=== PATIENT | female | born 1965 | race Caucasian/White ===

== ENCOUNTER 2023-12-27 16:46 | Emergency (ER) | payer MEDICAID, SELFPAY ==
[2023-12-27] VITALS (22 sets, daily range): BP systolic 182–233; BP diastolic 81–119; PULSE 84–115; RESP 17–18; TEMP 36.4; O2SAT 92–96; BMI 28.1
--- NOTE | 2023-12-27 17:09 | DI.CT.S_ITS ---
PROCEDURE: CT HEAD/BRAIN WO CON INDICATIONS: fall on saturday. severe headache. vomitting. TECHNIQUE: Noncontrast 4.5 mm thick angled axial sections acquired from the foramen magnum to the vertex, with coronal and sagittal reformats. For radiation dose reduction, the following was used: automated exposure control, adjustment of mA and/or kV according to patient size. COMPARISON: None. FINDINGS: Image quality: Diagnostic. CSF spaces: Basal cisterns are patent. No extra-axial fluid collections. Ventricles are normal in size and shape. Brain: No midline shift. No intracranial masses or hemorrhage. Yi-white matter interface is within normal limits. Skull and face: Calvarium and visualized facial bones are intact, without suspicious lesions. Sinuses: Visualized sinuses and mastoids are clear. IMPRESSION: No acute intracranial pathology. Dictated by: Magdy Julien M.D. on 12/27/2023 at 18:10 Approved by: Magdy Julien M.D. on 12/27/2023 at 18:14
--- NOTE | 2023-12-27 17:16 | DI.CT.S_ITS ---
PROCEDURE: CT FACIAL BONES WO CON INDICATIONS: head injury TECHNIQUE: Noncontrast 2.5 mm thick axial images acquired from the mandible through the frontal sinuses, with coronal and sagittal reformatting. For radiation dose reduction, the following was used: automated exposure control, adjustment of mA and/or kV according to patient size. COMPARISON: [facility], CT, CT CERVICAL SPINE WO CON, 12/27/2023, 17:27. [facility], CT, CT HEAD/BRAIN WO CON, 12/27/2023, 17:27. FINDINGS: Image quality: This examination is limited by involuntary motion artifact. Bones and teeth: Comminuted, mildly displaced nasal bone fractures can be seen. The nasal septum appears intact, without fracture. Orbital rico are intact. Sinus rico show no fracture or deformity. Visualized portions of the mandible demonstrate no fractures or subluxation. Zygomatic arches are intact. Pterygoid plates are intact. Visualized portions of the skull base and auditory canals are intact. Sinuses: Paranasal sinuses are aerated, without fluid levels, mucosal thickening, or mucoceles. Mastoid air cells are aerated. The ostiomeatal complexes are patent, yet they are constitutionally narrowed, with bilateral Malissa cells. Soft tissues: No edema, masses, or fluid collections. No enlarged lymph nodes. No soft tissue lacerations or debris. Vascular: Visualized vascular structures appear normal in the absence of contrast. Bony vascular foramina and canals are intact. Atherosclerotic calcification is noted. IMPRESSION: Comminuted, mildly displaced nasal bone fracture seen on both sides. These are felt most likely to be acute. However, please correlate with patient history and with focal tenderness to determine the chronicity of these fractures. Dictated by: Gautam Herrera M.D. on 12/27/2023 at 17:17 Approved by: Gautam Herrera M.D. on 12/27/2023 at 17:19
--- NOTE | 2023-12-27 17:17 | DI.CT.S_ITS ---
PROCEDURE: CT CERVICAL SPINE WO CON INDICATIONS: head injury TECHNIQUE: Noncontrast 3 mm thick sections acquired from the skull base to the T4 level. Sagittal and coronal reformats were then constructed. For radiation dose reduction, the following was used: automated exposure control, adjustment of mA and/or kV according to patient size. COMPARISON: None. FINDINGS: Image quality: Excellent. Bones: No fractures or dislocations. Visualized superior ribs are intact. Soft tissues: Prevertebral soft tissues are normal in thickness. No paravertebral hematomas. No apical pneumothoraces. Bilateral carotid bulb atherosclerotic calcifications. IMPRESSION: No displaced fracture or traumatic subluxation. Dictated by: Magdy Julien M.D. on 12/27/2023 at 18:29 Approved by: Magdy Julien M.D. on 12/27/2023 at 18:31
[2023-12-27] MEDS: ONDANSETRON 4 MG/2 ML INJ IV (17:36)
[2023-12-27 17:42] LABS: Add Manual Diff / Slide Review NO; Basophils Absolute Auto 100 /uL (0-100); Eosinophils Absolute Auto 0 /uL (0-450); Eosinophils Percent Auto 0.2 % (2-4); Hematocrit 45.5 % (36-46); Hemoglobin 15.4 g/dL (12.0-16.0); Lymphocytes Absolute Auto 1200 /uL (1100-4500); Lymphocytes Percent Auto 9.4 % (25-40); Mean Corpuscular HGB Conc 33.8 % (30-36); Mean Corpuscular Hemoglobin 30.1 PG (26-34); Monocytes Absolute Auto 500 /uL (0-900); Monocytes Percent Auto 3.9 % (3-14); Neutrophils Absolute Auto 10700 /uL (1500-7000); Neutrophils Percent Auto 85.5 % (50-75); Platelet Count 245 X10^3/uL (150-400); Red Blood Cell Count 5.11 X10^6/uL (4.0-5.2); Red Cell Distribution Width 13.4 % (11.6-14.8); White Blood Cell Count 12.6 X10^3/uL (4.5-11.0)
[2023-12-27 17:54] LABS: Alanine Aminotransferase 22 IU/L (<35); Albumin 5.1 g/dL (3.5-5.0); Albumin Globulin Ratio 1.5 (1.0-2.8); Alkaline Phosphatase 115 U/L (38-126); Aspartate Aminotransferase 29 IU/L (14-36); BUN Creatinine Ratio 12.9 (6-22); Bilirubin Total 0.7 mg/dL (0.2-1.3); Blood Urea Nitrogen 15 mg/dL (7-17); Carbon Dioxide 20 mmol/L (22-32); Chloride 104 mmol/L (98-107); Estimated Glomerular Filt Rate 54 mL/min (>60); Globulin 3.3 g/dL (1.7-4.1); Glucose 143 mg/dL (70-100); HEMOLYSIS 16 (0-50); Potassium 3.9 mmol/L (3.4-5.1); Sodium 136 mmol/L (137-145); Total Protein 8.4 g/dL (6.3-8.2)
[2023-12-27] MEDS: MORPHINE 2 MG/ML INJ IV (17:55)
[2023-12-27 18:18] LABS: Urine Volume 10mL (spun)
[2023-12-27 18:19] LABS: Bacteria Urine Occasional (0-1); Culture Indicated Urine Cult Not Indicated; RBC Urine None Seen (0-5/HPF); Squamous Epithelial Cell Urine 0-1 /HPF (0-5/HPF); WBC Urine 0-1/HPF (0-5/HPF)
--- NOTE | 2023-12-27 19:52 | ED_ITS ---
HPI - Head Injury General Chief complaint: Head Injury Stated complaint: fall Time Seen by Provider: 12/27/23 17:48 Source: patient Mode of arrival: Family Vehicle Limitations: no limitations History of Present Illness HPI Narrative: 58-year-old female with no reported medical issues who states that she developed headache that was gradual onset today increasing lowering worse throughout her whole head. Patient states she had 5 or 6 episodes of vomiting. She states that she has had headaches before she has had migraines before but states this feels different. She did have a fall a week ago, tripped and fell hitting her face and has bruising underneath both eyes. Denies any headaches immediately afterwards denied any neck pain, no chest pain or shortness of breath, she was not having any nausea or vomiting until today. States that her face hurt a little bit but not bad. She denies vision changes. Denies any numbness tingling or weakness or difficulty with ambulation. Patient states she has not had any loss of bowel or bladder control or any other GI or urinary symptoms. She states no prescription medications, denies prior surgeries. No known drug allergies. Former smoker, occasional alcohol, uses marijuana but no other recreational drugs. Patient received Zofran and 2 mg of morphine prior to evaluation. Related Data Allergies Allergy/AdvReac Type Severity Reaction Status Date / Time No Known Drug Allergies Allergy Verified 12/27/23 17:08 Review of Systems Review of Systems ROS Unobtainable: All systems reviewed & are unremarkable except as noted in HPI and below Patient History Social History Smoking Status: Former smoker Smoking Status: Former smoker tobacco type: cigarettes alcohol intake frequency: 0-2 drinks per day Substance Use Type: marijuana Exam Narrative Exam Narrative: GEN: well nourished, well appearing female, alert and oriented x 3, patient appears to be in mild distress. HEENT: Atraumatic, pupils are equal round reactive to light, extraocular movements are intact, nares are clear, TMs are clear with no fluid, there is no conjunctival pallor. Throat is clear without any exudates, erythema, tonsillar enlargement or uvular deviation, patient has bilateral bruising/raccoon sign. No moreno sign. No other traumatic changes. HEART: Regular rate and rhythm without murmur, clicks, rubs. No carotid bruits, pulses are equal in upper and lower extremities LUNGS:Lungs clear to auscultation, no wheezes, rales, crackles, chest moves symmetrically ABD:bowel sounds normal, soft, non-tender, no guarding, rebound, rigidity, no masses noted, no hepatosplenomegaly :No CVA tenderness MSCL: Non-tender, no muscle atrophy, muscles strength 5/5 upper and lower extremities, full range of motion, normal gait NEURO:CN 2-12 intact, sensation normal, finger nose finger test normal, heel monahan test normal, romberg normal Initial Vital Signs Initial Vital Signs: Vital Signs Temperature 97.5 F L 12/27/23 17:02 Pulse Rate 115 H 12/27/23 17:02 Respiratory Rate 17 12/27/23 17:02 Blood Pressure 187/112 H 12/27/23 17:02 Pulse Oximetry 95 12/27/23 17:02 Oxygen Delivery Method Room Air 12/27/23 17:02 Course Orders Ordered: ED Orders 12/27/23 17:09 CT head/brain wo con Stat 12/27/23 17:16 CT facial bones wo con Stat 12/27/23 17:17 CT cervical spine wo con Stat 12/27/23 17:31 CBC Auto Diff [Complete Blood Count AUTO DIFF] Stat Comprehensive Metabolic Panel Stat 12/27/23 17:40 Urine Microscopic Stat Discontinued Medications Hydrocodone Bitart/Acetaminophen (Hydrocodone/Acet 5/325 Tablet) 2 tab PO NOW ONE Stop: 12/27/23 19:53 Last Admin: 12/27/23 19:58 Dose: 2 tab Documented By: SHERRI Hydrocodone Bitart/Acetaminophen (Hydrocodone/Acet 5/325 Prepack) 1 bottle MISC DIRECTED ONE Stop: 12/27/23 21:35 Last Admin: 12/27/23 21:50 Dose: 1 bottle Documented By: SHERRI Sodium Chloride (Normal Saline 0.9%) 1,000 mls @ 1,000 mls/hr IV BOLUS ONE Stop: 12/27/23 21:10 Last Infusion: 12/27/23 21:36 Dose: Infused Documented By: Admin: 12/27/23 20:29 Dose: 1,000 mls/hr Documented By: SHERRI Ketorolac Tromethamine (Ketorolac 30 Mg/Ml Vial) 15 mg IV NOW ONE Stop: 12/27/23 20:12 Last Admin: 12/27/23 20:25 Dose: 15 mg Documented By: SHERRI Metoclopramide HCl (Metoclopramide 10 Mg/2 Ml Inj) 10 mg IV NOW ONE Stop: 12/27/23 20:12 Last Admin: 12/27/23 20:27 Dose: 10 mg Documented By: SHERRI Morphine Sulfate (Morphine 2 Mg/Ml Inj) 2 mg IV NOW ONE Stop: 12/27/23 17:49 Last Admin: 12/27/23 17:55 Dose: 2 mg Documented By: MOJGAN Ondansetron HCl (Ondansetron 4 Mg/2 Ml Inj) 4 mg IV NOW PRN PRN Reason: Nausea And Vomiting Last Admin: 12/27/23 17:36 Dose: 4 mg Documented By: SHERRI Ondansetron HCl (Ondansetron 4 Mg Odt Prepack) 1 bottle MISC DIRECTED ONE Stop: 12/27/23 21:35 Last Admin: 12/27/23 21:50 Dose: 1 bottle Documented By: SHERRI Vital Signs Vital signs: Vital Signs - 8 hr 12/27/23 17:42 12/27/23 17:42 12/27/23 17:43 Pulse Rate 87 93 H Respiratory Rate Blood Pressure 200/88 H Pulse Oximetry 93 94 Oxygen Delivery Method 12/27/23 17:43 12/27/23 17:44 12/27/23 18:00 Pulse Rate 92 H 87 Respiratory Rate 18 Blood Pressure 188/85 H 182/84 H Pulse Oximetry 95 94 Oxygen Delivery Method Room Air 12/27/23 18:00 12/27/23 18:03 12/27/23 18:03 Pulse Rate 87 Respiratory Rate Blood Pressure 195/85 H 184/84 H Pulse Oximetry 94 Oxygen Delivery Method 12/27/23 18:30 12/27/23 18:30 12/27/23 18:43 Pulse Rate 84 84 Respiratory Rate Blood Pressure 192/93 H Pulse Oximetry 94 93 Oxygen Delivery Method 12/27/23 18:43 12/27/23 19:00 12/27/23 19:00 Pulse Rate 84 Respiratory Rate Blood Pressure 188/81 H 196/97 H Pulse Oximetry 93 Oxygen Delivery Method 12/27/23 20:01 12/27/23 20:02 12/27/23 20:03 Pulse Rate 98 H 98 H 98 H Respiratory Rate Blood Pressure Pulse Oximetry 96 92 95 Oxygen Delivery Method 12/27/23 20:03 12/27/23 20:05 12/27/23 20:05 Pulse Rate 101 H Respiratory Rate Blood Pressure 233/112 H 221/119 H Pulse Oximetry 96 Oxygen Delivery Method 12/27/23 20:30 12/27/23 20:48 12/27/23 20:48 Pulse Rate 93 H 92 H Respiratory Rate Blood Pressure 210/89 H Pulse Oximetry 94 95 Oxygen Delivery Method 12/27/23 20:49 12/27/23 20:49 12/27/23 20:50 Pulse Rate 92 H Respiratory Rate Blood Pressure 201/86 H 194/84 H Pulse Oximetry 94 Oxygen Delivery Method 12/27/23 20:50 12/27/23 20:51 12/27/23 20:51 Pulse Rate 92 H 90 Respiratory Rate Blood Pressure 196/85 H Pulse Oximetry 94 95 Oxygen Delivery Method 12/27/23 20:52 12/27/23 20:52 12/27/23 21:00 Pulse Rate 93 H 90 Respiratory Rate Blood Pressure 195/83 H Pulse Oximetry 94 95 Oxygen Delivery Method 12/27/23 21:30 12/27/23 21:32 12/27/23 21:32 Pulse Rate 87 90 Respiratory Rate Blood Pressure 187/89 H Pulse Oximetry 95 95 Oxygen Delivery Method MDM - Head Injury Lab Data 12/27/23 17:31 12/27/23 17:31 Labs: Lab Results 12/27/23 12/27/23 Range/Units 17:31 17:40 WBC 12.6 H (4.5-11.0) X10^3/uL RBC 5.11 (4.0-5.2) X10^6/uL Hgb 15.4 (12.0-16.0) g/dL Hct 45.5 (36-46) % MCV 89.0 (80-100) fL MCH 30.1 (26-34) PG MCHC 33.8 (30-36) % RDW 13.4 (11.6-14.8) % Plt Count 245 (150-400) X10^3/uL Neut % (Auto) 85.5 H (50-75) % Lymph % (Auto) 9.4 L (25-40) % [place] % (Auto) 3.9 (3-14) % Eos % (Auto) 0.2 L (2-4) % Baso % (Auto) 1.0 (0-2) % Neut # (Auto) 83605 H (8868-8857) /uL Lymph # (Auto) 1200 (0740-2728) /uL [place] # (Auto) 500 (0-900) /uL Eos # (Auto) 0 (0-450) /uL Baso # (Auto) 100 (0-100) /uL Sodium 136 L (137-145) mmol/L Potassium 3.9 (3.4-5.1) mmol/L Chloride 104 (98-107) mmol/L Carbon Dioxide 20 L (22-32) mmol/L BUN 15 (7-17) mg/dL Creatinine 1.16 H (0.52-1.04) mg/dL Estimated GFR 54 L (>60) mL/min BUN/Creatinine Ratio 12.9 (6-22) Glucose 143 H (70-100) mg/dL Calcium 10.0 (8.4-10.2) mg/dL Total Bilirubin 0.7 (0.2-1.3) mg/dL AST 29 (14-36) IU/L ALT 22 (<35) IU/L Alkaline Phosphatase 115 (38-126) U/L Total Protein 8.4 H (6.3-8.2) g/dL Albumin 5.1 H (3.5-5.0) g/dL Globulin 3.3 (1.7-4.1) g/dL Albumin/Globulin Ratio 1.5 (1.0-2.8) Urine RBC None seen (0-5/HPF) Urine WBC 0-1/hpf (0-5/HPF) Ur Squamous Epith Cells 0-1 /hpf (0-5/HPF) Urine Bacteria Occasional (0-1) (None) Ur Culture Indicated? Cult not indicated Vol Urine Centrifuged 10ml (spun) Urine Dip Bedside Urine Glucose Negative Bedside Urine Bilirubin - Negative Bedside Urine Ketone ++ 40 Urine Specific [place] 1.020 Bedside Urine Occult Blood +/- Bedside Urine pH 6.5 Bedside Urine Protein ++ 100 Bedside Urine Urobilinogen - Negative Bedside Urine Nitrite - Negative Bedside Urine Leukocytes - Negative Esterase Imaging Data CT scan - head: Radiologist's Impression: [address] [address] [address] Scan Report Signed Patient: Bri Edgar MR#: [id number] : 1965 Acct:[id number] Age/Sex: 58 / F Date of Service: 12/27/23 Loc: ED Accession Number: [id number] Procedure: CT head/brain wo con Ordering Provider: Olamide Walker D.O. PROCEDURE: CT HEAD/BRAIN WO CON INDICATIONS: fall on [place]. severe headache. vomitting. TECHNIQUE: Noncontrast 4.5 mm thick angled axial sections acquired from the foramen magnum to the vertex, with coronal and sagittal reformats. For radiation dose reduction, the following was used: automated exposure control, adjustment of mA and/or kV according to patient size. COMPARISON: None. FINDINGS: Image quality: Diagnostic. CSF spaces: Basal cisterns are patent. No extra-axial fluid collections. Ventricles are normal in size and shape. Brain: No midline shift. No intracranial masses or hemorrhage. Yi-white matter interface is within normal limits. Skull and face: Calvarium and visualized facial bones are intact, without suspicious lesions. Sinuses: Visualized sinuses and mastoids are clear. IMPRESSION: No acute intracranial pathology. Dictated by: Magdy Julien M.D. on 12/27/2023 at 18:10 Approved by: Magdy Julien M.D. on 12/27/2023 at 18:14 CT - cervical spine: Radiologist's Impression: Diagnostics Reports Bri Edgar??58??F??1965 ? Allergy/Adv: No Known Drug Allergies Close Cervical Spine CT (Signed) Call,Magdy - 12/27/[address] (Signed) Gautam Herrera - 12/27/[address] (Signed) Call,Magdy - 12/27/23 Launch?[place] [address] CT Scan Report Signed Patient: Bri Edgar MR#: [id number] : 1965 Acct:[id number] Age/Sex: 58 / F Date of Service: 12/27/23 Loc: ED Accession Number: [id number] Procedure: CT cervical spine wo con Ordering Provider: Olamide Walker D.O. PROCEDURE: CT CERVICAL SPINE WO CON INDICATIONS: head injury TECHNIQUE: Noncontrast 3 mm thick sections acquired from the skull base to the T4 level. Sagittal and coronal reformats were then constructed. For radiation dose reduction, the following was used: automated exposure control, adjustment of mA and/or kV according to patient size. COMPARISON: None. FINDINGS: Image quality: Excellent. Bones: No fractures or dislocations. Visualized superior ribs are intact. Soft tissues: Prevertebral soft tissues are normal in thickness. No paravertebral hematomas. No apical pneumothoraces. Bilateral carotid bulb atherosclerotic calcifications. IMPRESSION: No displaced fracture or traumatic subluxation. Dictated by: Magdy Julien M.D. on 12/27/2023 at 18:29 Approved by: Magdy Julien M.D. on 12/27/2023 at 18:31 CT facial bones: Radiologist's Impression: [place] [address] CT Scan Report Signed Patient: Bri Edgar MR#: [id number] : 1965 Acct:[id number] Age/Sex: 58 / F Date of Service: 12/27/23 Loc: ED Accession Number: [id number] Procedure: CT facial bones wo con Ordering Provider: Olamide Walker D.O. PROCEDURE: CT FACIAL BONES WO CON INDICATIONS: head injury TECHNIQUE: Noncontrast 2.5 mm thick axial images acquired from the mandible through the frontal sinuses, with coronal and sagittal reformatting. For radiation dose reduction, the following was used: automated exposure control, adjustment of mA and/or kV according to patient size. COMPARISON: [facility], CT, CT CERVICAL SPINE WO CON, 12/27/2023, 17:27. [facility], CT, CT HEAD/BRAIN WO CON, 12/27/2023, 17:27. FINDINGS: Image quality: This examination is limited by involuntary motion artifact. Bones and teeth: Comminuted, mildly displaced nasal bone fractures can be seen. The nasal septum appears intact, without fracture. Orbital rico are intact. Sinus rico show no fracture or deformity. Visualized portions of the mandible demonstrate no fractures or subluxation. Zygomatic arches are intact. Pterygoid plates are intact. Visualized portions of the skull base and auditory canals are intact. Sinuses: Paranasal sinuses are aerated, without fluid levels, mucosal thickening, or mucoceles. Mastoid air cells are aerated. The ostiomeatal complexes are patent, yet they are constitutionally narrowed, with bilateral Malissa cells. Soft tissues: No edema, masses, or fluid collections. No enlarged lymph nodes. No soft tissue lacerations or debris. Vascular: Visualized vascular structures appear normal in the absence of contrast. Bony vascular foramina and canals are intact. Atherosclerotic calcification is noted. IMPRESSION: Comminuted, mildly displaced nasal bone fracture seen on both sides. These are felt most likely to be acute. However, please correlate with patient history and with focal tenderness to determine the chronicity of these fractures. Dictated by: Gautam Herrera M.D. on 12/27/2023 at 17:17 Approved by: Gautam Herrera M.D. on 12/27/2023 at 17:19 [facility] Narrative Medical decision making narrative: A 58-year-old female who did have a traumatic fall hitting her face and appears to have a nasal bone fracture on imaging. She states she had no real headaches and overall felt well until today when she had a gradual onset headache that she describes as quite severe. She has had migraines in the past she does state this feels little bit different. She has a little bit hypertensive initially but more hypertensive on recheck. She did receive 2 mg of morphine and Zofran earlier prior to my arrival onshift. Head CT shows no acute change, CT facial bones shows comminuted mildly displaced nasal bone fractures on both sides felt most likely to be acute. C-spine shows no fracture or traumatic subluxation. Labs show white count of 12.6 otherwise normal hemoglobin, platelets, sodium is 136 CO2 is 20 with a potassium of 3.9 chloride of 104 creatinine is 1.16 no priors for comparison glucose is 143 otherwise appropriate accept for total protein and albumin being elevated. Patient was still in quite uncomfortable had 2 Altmar ordered but looks pretty uncomfortable we will treat with Toradol, Reglan and fluids and re-evaluate. Patient is sleeping on recheck, blood pressure is trending downwards. Recheck after fluids completed. Patient is much more comfortable. She is sleeping but awakens easily to verbal stimuli. She states headache has improved. Blood pressure is not totally normalized but has improved and she is felt appropriate and safe for discharge. Discussed her findings from today with her and her as well. Plan for follow up for recheck of her blood pressure, return precautions. All questions answered Discharge Plan Departure Patient Disposition: Home Clinical Impression: Closed fracture nasal bone, Headache Instructions: DI for Headache Activity Restrictions/Additional Instructions: Your imaging shows nasal bone fracture but no other acute changes on head CT, facial bone CT or cervical spine CT. Your blood pressure has been elevated today I would recommend follow up for recheck. You can continue with Tylenol up to a 1000 mg every 6 hours as needed. You can take ibuprofen up to 600 mg every 6 hours as needed. If in adequate you can take 1 tablet of Altmar every 6 hours as needed. Do not take this medication with Tylenol as it already has Tylenol in it. This medication can make you sleepy do not drive, perform hazardous activities or make any major decisions while taking it. This medication will make you constipated please take a stool softener once to twice daily until stools are soft and regular. Take zofran 1 tablet every 6 hours as needed for nausea or vomiting. Please return for rapidly worsening symptoms fevers, passing out, new numbness tingling or weakness, persistent vomiting, lightheadedness or passing out or other new or concerning changes. Referrals: Alberto Arnett MD [Primary Care Provider] - Noé García MD [Physician] - Stand Alone Forms: Patient Portal/API
[2023-12-27] MEDS: HYDROCODONE/ACET 5/325 TABLET 2 TAB PO (19:58)
--- NOTE | 2023-12-27 20:07 | PC.NURSE ---
Pt complaining of increased head pain and asking for more pain meds. EMD Mank notified. Pain meds given, Bp increased to 200s/100s. Taken once on each side. EMD Mank notified.
--- NOTE | 2023-12-27 20:09 | PC.NURSE ---
EMD Mank at bedside.
[2023-12-27] MEDS: KETOROLAC 30 MG/ML VIAL 15 MG IV (20:25)
[2023-12-27] MEDS: METOCLOPRAMIDE 10 MG/2 ML INJ IV (20:27)
[2023-12-27] MEDS: SODIUM CHLORIDE 0.9% 1,000 ML 1000 ML IV (20:29)
[2023-12-27] MEDS: ONDANSETRON 4 MG ODT PREPACK 1 BOTTLE MISC (21:50)
[2023-12-27] MEDS: HYDROCODONE/ACET 5/325 PREPACK 1 BOTTLE MISC (21:50)
== END 2023-12-27 22:04 | disposition home or self-care (01) ==
PROVIDERS: Emergency Medicine; Emergency Provider Emergency Medicine; PCP Family Medicine
DX: S02.2XXA Fracture of nasal bones, initial encounter for closed fracture (principal); R51.9 Headache, unspecified; W01.0XXA Fall on same level from slipping, tripping and stumbling without subsequent striking against object, initial encounter
CPT/HCPCS: 70450; 70486; 72125; 80053; 81003; 81015; 85025; 96361; 96374; 96375; 99284; J1885; J2270; J2405; J2765